=== PATIENT | female | born 1995 | race Caucasian/White ===

== ENCOUNTER 2019-07-20 19:56 | Inpatient (IN) | payer MEDICAID ==
[2019-07-20] MEDS ORDERED: NORMAL SALINE 1000 ML 1,000 ML IV ONE (20:07)
--- NOTE | 2019-07-20 20:12 | ER Document Report ---
ED Medical Screen (RME) - General Chief Complaint: Vomiting Stated Complaint: VOMITING Time Seen by Provider: 07/20/19 20:03 Mode of Arrival: Wheelchair Information source: Patient Notes: 24-year-old female presented to ED for complaint of nausea and vomiting since yesterday. She states she is a diabetic and she feels like she does when she has DKA. States her last menstrual period was in May. She states she is vomited all day today multiple times states she also has had multiple diarrheal stools. She does have gastric problems as well as low back pain. I have greeted and performed a rapid initial assessment of this patient. A comprehensive ED assessment and evaluation of the patient, analysis of test results and completion of medical decision making process will be conducted by an additional ED providers. - Related Data Allergies/Adverse Reactions: cinnamon Allergy (Verified 07/20/19 20:08) lavender (Lavandula angustifolia) Allergy (Verified 07/20/19 20:08) Physical Exam - Vital signs Vitals: Temp Pulse Resp BP Pulse Ox 97.4 F 134 H 20 101/85 96 07/20/19 20:02 07/20/19 20:02 07/20/19 20:02 07/20/19 20:02 07/20/19 20:02 Course - Vital Signs Vital signs: Temp Pulse Resp BP Pulse Ox 97.4 F 134 H 20 101/85 96 07/20/19 20:02 07/20/19 20:02 07/20/19 20:02 07/20/19 20:02 07/20/19 20:02 - Laboratory Laboratory results interpreted by me: 07/20/19 20:13 POC Glucose 283 H
[2019-07-20] MEDS ORDERED: PROCHLORPERAZINE EDISYLATE INJ 10 MG/2 ML VIAL IV ONE (20:13)
[2019-07-20] MEDS ORDERED: FAMOTIDINE INJ/PF 20 MG/2 ML SDV IV ONE (21:49)
--- NOTE | 2019-07-20 21:55 | ER Document Report ---
ED General - General Chief Complaint: Nausea/Vomiting Stated Complaint: VOMITING Time Seen by Provider: 07/20/19 20:03 Mode of Arrival: Wheelchair TRAVEL OUTSIDE OF THE [place] IN LAST 30 DAYS: No - HPI Notes: 24-year-old female type I diabetic with onset at age 16 visiting here from [place] reporting a 3-day history of vomiting, low back pain, polydipsia, polyuria and general malaise. Patient says she is been admitted to the hospital multiple times in the past for DKA and thinks that she probably has this again. She says she has been taking her insulin as prescribed. She denies fever. Also says she has a history of diabetic gastric paresis and chronic low back pain. She admits that she regularly smokes cannabis but says she has not smoked any in the last week. She says she "usually gets morphine" when her doctors have to admit her for diabetic gastric paresis and she is requesting this now. Last menses in late May. Patient says her periods are always irregular. She denies . No contraception. Patient denies any skin rashes or abscess. - Related Data Allergies/Adverse Reactions: cinnamon Allergy (Verified 07/20/19 20:08) lavender (Lavandula angustifolia) Allergy (Verified 07/20/19 20:08) Home Medications: Humalog Past Medical History - General Information source: Patient - Social History Smoking Status: Never Smoker Chew tobacco use (# tins/day): No Frequency of alcohol use: None Drug Abuse: None Family History: Reviewed & Not Pertinent Patient has suicidal ideation: No Patient has homicidal ideation: No Review of Systems - Review of Systems Notes: Constitutional: Negative for fever. HENT: Negative for sore throat. Eyes: Negative for visual changes. Cardiovascular: Negative for chest pain. Respiratory: Negative for shortness of breath. Gastrointestinal: As per HPI. Genitourinary: Negative for dysuria. Musculoskeletal: Positive for back pain. Skin: Negative for rash. Neurological: Negative for headaches, focal weakness or numbness. 10 point ROS negative except as marked above and in HPI. Physical Exam - Vital signs Vitals: Temp Pulse Resp BP Pulse Ox 97.4 F 134 H 20 101/85 96 07/20/19 20:02 07/20/19 20:02 07/20/19 20:02 07/20/19 20:02 07/20/19 20:02 - Notes Notes: GENERAL: Slender female appearing approximately stated age who looks acutely ill and uncomfortable. SKIN: Good turgor no rashes. HEAD: Normocephalic atraumatic. EYES: PERRLA. EOMI. Conjunctivae and sclerae clear. EARS: CANALS AND TMS CLEAR. NOSE: CLEAR. MOUTH: Tacky moist mucosa. Good dentition. No stridor or edema. No drooling. NECK: Supple. No masses or thyromegaly. No adenopathy. Carotids 2+ without br uits. No JVD. BACK: Symmetrical without tenderness. CHEST: Respirations unlabored. Breath sounds clear and symmetrical. HEART: Tachycardic regular rhythm. No murmur gallop or rub. ABDOMEN: Mild epigastric tenderness. Soft without masses, organomegaly or rebound. Hyperactive bowel sounds. No bruits. GENITALIA: Deferred. EXTREMITIES: No edema. No calf tenderness. Cap refill less than 1.5 seconds. Dorsalis pedis and posterior tibial pulses 3+ and symmetrical. NEUROLOGICAL: GCS 15. Alert and oriented x3. Normal gait. Fluent speech. Cranial nerves II through XII intact. Sensorimotor and cerebellar normal. Normal tone. PSYCHIATRIC: Flat, anxious affect. Course - Re-evaluation Re-evalutation: 07/20/19 23:19 Patient appeared clinically dehydrated and had an elevated sugar but strongly suspected of being in diabetic ketoacidosis. Lab testing here was confirmatory with a blood sugar approximately 375 bicarb of 15 normal potassium and venous pH of 7.25. IV insulin infusion along with IV fluids initiated. Patient received IV antiemetics. test was negative. Patient requested IV morphine but I explained her that I did not feel this was appropriate under clinical circumstances. Case was discussed with on-call hospitalist Dr. Shafer who will admit to [facility] and he also requests that we not administer morphine at this time. - Vital Signs Vital signs: Temp Pulse Resp BP Pulse Ox 97.4 F 134 H 20 101/85 96 07/20/19 20:02 07/20/19 20:02 07/20/19 20:02 07/20/19 20:02 07/20/19 20:02 - Laboratory Result Diagrams: 07/20/19 21:42 03/06/20 21:42 Laboratory results interpreted by me: 07/20/19 07/20/19 07/20/19 20:13 21:42 21:42 WBC 16.3 H MCH 25.1 L MCHC 31.3 L RDW 17.5 H Lymph % (Auto) 6.8 L Absolute Neuts (auto) 14.4 H Seg Neutrophils % 88.7 H VBG pH VBG HCO3 Carbon Dioxide 15 L Anion Gap 24 H Glucose 370 H POC Glucose 283 H Alkaline Phosphatase 139 H 07/20/19 21:42 WBC MCH MCHC RDW Lymph % (Auto) Absolute Neuts (auto) Seg Neutrophils % VBG pH 7.29 L VBG HCO3 16.6 L Carbon Dioxide Anion Gap Glucose POC Glucose Alkaline Phosphatase Critical Care Note - Critical Care Note Total time excluding time spent on procedures (mins): 35 - IV insulin infusion with DKA protocol Discharge - Discharge Clinical Impression: Diabetic gastroparesis Diabetic ketoacidosis Qualifiers: Diabetes mellitus type: type 1 Diabetes mellitus complication detail: without coma Qualified Code(s): E10.10 - Type 1 diabetes mellitus with ketoacidosis without coma Condition: Fair Disposition: ADMITTED INPATIENT Admitting Provider: Soni (Hospitalist) Unit Admitted: [facility]
[2019-07-20 21:57] LABS: ABSOLUTE LYMPHOCYTES (AUTO) 1.1 10^3/uL (0.5-4.7); ABSOLUTE MONOCYTES (AUTO) 0.7 10^3/uL (0.1-1.4); ABSOLUTE NEUT (AUTO) 14.4 10^3/uL (1.7-8.2); BASOPHILS % (AUTO) 0.2 % (0-2); HEMATOCRIT 42.2 % (36.0-47.0); HEMOGLOBIN 13.2 g/dL (12.0-15.5); LYMPHOCYTES % (AUTO) 6.8 % (13-45); MEAN CORPUSCULAR HEMOGLOBIN 25.1 pg (27.0-33.4); MEAN CORPUSCULAR HGB CONC 31.3 g/dL (32.0-36.0); MEAN CORPUSCULAR VOLUME 80 fl (80-97); MONOCYTES % (AUTO) 4.3 % (3-13); PLATELET COUNT 445 10^3/uL (150-450); RED BLOOD COUNT 5.26 10^6/uL (3.72-5.28); RED CELL DISTRIBUTION WIDTH 17.5 % (11.5-14.0); SEGMENTED NEUTROPHILS % (AUTO) 88.7 % (42-78); TOTAL CELLS COUNTED % (AUTO) 100 %; WHITE BLOOD COUNT 16.3 10^3/uL (4.0-10.5)
[2019-07-20 22:00] LABS: VENOUS BLOOD BASE EXCESS -9.1 mmol/L; VENOUS BLOOD HCO3 16.6 mmol/L (20-32); VENOUS BLOOD PCO2 35.3 mmHg (35-63); VENOUS BLOOD PH 7.29 (7.30-7.42)
--- NOTE | 2019-07-20 22:11 | EKG REPORT ---
SEVERITY:- OTHERWISE NORMAL ECG - SINUS TACHYCARDIA BORDERLINE LEFT AXIS DEVIATION : Confirmed by: Pedro Bustamante MD 20-Jul-2019 22:11:04
[2019-07-20 23:00] LABS: ALBUMIN 4.9 g/dL (3.5-5.0); ALKALINE PHOSPHATASE 139 U/L (38-126); ASPARTATE AMINO TRANSFERASE 19 U/L (14-36); BILIRUBIN,DIRECT 0.4 mg/dL (0.0-0.4); BILIRUBIN,TOTAL 0.5 mg/dL (0.2-1.3); BLOOD UREA NITROGEN 16 mg/dL (7-20); CALCIUM 9.8 mg/dL (8.4-10.2); CARBON DIOXIDE 15 mmol/L (22-30); CHLORIDE 99 mmol/L (98-107); GLUCOSE 370 mg/dL (75-110); POTASSIUM 4.9 mmol/L (3.6-5.0)
[2019-07-20 23:05] LABS: ANION GAP 24 (5-19)
[2019-07-20] MEDS ORDERED: DEXTROSE 40% GEL 15 GM TUBE PO PRN ×2 (23:10)
[2019-07-20] MEDS ORDERED: NORMAL SALINE 100 ML with INSULIN REGULAR, HUMAN 100 UNIT IV PRN ×2 (23:10)
[2019-07-20] MEDS ORDERED: DEXTROSE 50%-WATER 25 GM/50 ML DISP.SYRIN IV PRN ×2 (23:10)
[2019-07-20] MEDS ORDERED: GLUCAGON,HUMAN RECOMB 1 MG INJ IM PRN (23:10)
[2019-07-20] MEDS ORDERED: METOCLOPRAMIDE HCL INJ/PF 10 MG/2 ML SDV IV ONE (23:17)
[2019-07-20 23:38] LABS: APPEARANCE,URINE CLEAR; BILIRUBIN,URINE NEGATIVE (NEGATIVE); COLOR,URINE YELLOW; GLUCOSE, URINE >=500 mg/dL (NEGATIVE); KETONES,URINE 80 mg/dL (NEGATIVE); PROTEIN,URINE NEGATIVE (NEGATIVE); URINE SPECIFIC GRAVITY 1.021; UROBILINOGEN,URINE NEGATIVE mg/dL (<2.0)
[2019-07-20 23:54] LABS: URINE AMPHETAMINES SCREEN NEGATIVE; URINE BARBITURATES SCREEN NEGATIVE; URINE BENZODIAZEPINES SCREEN NEGATIVE; URINE COCAINE SCREEN NEGATIVE; URINE METHADONE SCREEN NEGATIVE; URINE PHENCYCLIDINE SCREEN NEGATIVE
[2019-07-20 23:55] LABS: URINE MARIJUANA (THC) SCREEN UNCONFIRMED POSITIVE
[2019-07-20] MEDS ORDERED: INSULIN REG, HUMAN 100 UNIT/ML 3 ML VIAL (PYX) ONE (23:57)
[2019-07-21] MEDS ORDERED: ACETAMINOPHEN 650 MG SUPP.RECT PR PRN (00:30)
[2019-07-21] MEDS ORDERED: ACETAMINOPHEN 325 MG TABLET PO PRN (00:30)
[2019-07-21] MEDS ORDERED: PROMETHAZINE HCL INJ 25 MG/1 ML VIAL IV PRN (00:30)
[2019-07-21] MEDS ORDERED: MAGNESIUM HYDROXIDE SUSP 30 ML UDCUP PO PRN (00:30)
[2019-07-21] MEDS ORDERED: NORMAL SALINE 1000 ML 1,000 ML IV PRN (00:37)
[2019-07-21] MEDS ORDERED: NORMAL SALINE 100 ML with INSULIN REGULAR, HUMAN 100 UNIT IV PRN ×2 (00:37)
[2019-07-21] MEDS ORDERED: KETOROLAC TROMETHAMINE INJ/PF 30 MG/1 ML SDV IV PRN (00:44)
--- NOTE | 2019-07-21 00:56 | PDOC H&P ---
History of Present Illness Admission Date/PCP: 07/20/19 23:40 Patient complains of: Nausea and vomiting History of Present Illness: RANDY SHAH is a 24 year old female with a history of type 1 diabetes mellitus as well as pancreatic insufficiency and possible diabetic gastroparesis. She also has neuropathy and likely a bulging disc at L5-S1. Her last hospitalization for DKA was in May. She states that approximately 2 days ago she began to feel poorly. Her glucose was in the 200s. She began to have chills and hot flashes but no fever. There was no obvious evidence of infection. The nausea and vomiting has become worse and she presented to the emergency department. Evaluation revealed an elevated glucose of 370. Anion gap was 24. Electrolytes were normal. CBC revealed a white blood cell count of 16. Urine was positive for ketones as well. With the persistent nausea and vomiting as well as diabetic ketoacidosis patient referred to the hospital service for admission Past Medical History Cardiac Medical History: Denies: Congestive Heart Failure, Coronary Artery Disease, Hyperlipidema, Hyp ertension Pulmonary Medical History: Denies: Asthma, Chronic Obstructive Pulmonary Disease (COPD) EENT Medical History: Denies: Ears, Nose, Throat Neurological Medical History: Reports: Other - Diabetic neuropathy Endocrine Medical History: Reports: Diabetes Mellitus Type 1 Renal/ Medical History: Denies: Chronic Kidney Disease, Nephrolithiasis Malignancy Medical History: Reports: None GI Medical History: Reports: Other - Diabetic gastroparesis. Pancreatic insufficiency. Musculoskeltal Medical History: Reports: Other - Possible bulging disc at L5/S1 with chronic pain Skin Medical History: Denies: Eczema, Psoriasis Psychiatric Medical History: Reports: Substance Abuse Denies: Alcohol Dependency, Tobacco Dependency Past Surgical History Past Surgical History: Reports: Other - Gastroscopy Social History Information Source: Patient, Relative Lives with: Alone - Patient is single Smoking Status: Never Smoker Electronic Cigarette use?: No Frequency of Alcohol Use: None Hx Recreational Drug Use: Yes Drugs: Marijuana Hx Prescription Drug Abuse: No - Advance Directive Resuscitation Status: Full Code Family History Family History: DM Parental Family History Reviewed: Yes Children Family History Reviewed: NA Sibling(s) Family History Reviewed.: Yes Medication/Allergy Allergies/Adverse Reactions: cinnamon Allergy (Verified 07/20/19 20:08) lavender (Lavandula angustifolia) Allergy (Verified 07/20/19 20:08) Review of Systems Constitutional: PRESENT: anorexia, chills Eyes: ABSENT: visual disturbances Ears: ABSENT: hearing changes Nose, Mouth, and Throat: ABSENT: headache(s), sore throat Cardiovascular: ABSENT: chest pain, edema, palpitations Respiratory: ABSENT: cough, dyspnea Gastrointestinal: PRESENT: nausea, vomiting. ABSENT: coffee ground emesis, heartburn, hematemesis, hematochezia Genitourinary: ABSENT: difficulty urinating Musculoskeletal: PRESENT: back pain Neurological: PRESENT: tingling - Occasional tingling or burning in her legs Psychiatric: PRESENT: anxiety Endocrine: ABSENT: cold intolerance, heat intolerance, menstrual abnormalities, polydipsia, polyphagia, polyuria Hematologic/Lymphatic: ABSENT: easy bleeding, easy bruising, lymphadenopathy Physical Exam Vital Signs: Temp Pulse Resp BP Pulse Ox 97.4 F 134 H 20 101/85 96 07/20/19 20:02 07/20/19 20:02 07/20/19 20:02 07/20/19 20:02 07/20/19 20:02 Intake & Output 07/19/19 07/20/19 07/21/19 06:59 06:59 06:59 Intake Total 1000 Balance 1000 Weight 48.3 kg General appearance: PRESENT: cooperative, severe distress, well-developed Head exam: PRESENT: atraumatic, normocephalic Eye exam: PRESENT: conjunctiva pink, EOMI. ABSENT: scleral icterus Ear exam: PRESENT: normal external ear exam. ABSENT: bleeding, drainage Mouth exam: PRESENT: dry mucosa, tongue midline, other - Piercing present Throat exam: PRESENT: tonsillogmegaly. ABSENT: post pharyngeal erythema, tonsillar exudate Neck exam: ABSENT: carotid bruit, JVD, lymphadenopathy Respiratory exam: PRESENT: clear to auscultation meghan, symmetrical, unlabored. ABSENT: accessory muscle use, prolonged expiratory phas, rales, rhonchi, tachypnea, wheezes Cardiovascular exam: PRESENT: +S1, +S2, tachycardia. ABSENT: diastolic murmur, systolic murmur Pulses: PRESENT: normal radial pulses, normal dorsalis pedis pul GI/Abdominal exam: PRESENT: normal bowel sounds, soft, tenderness - Mild nonspecific tenderness. ABSENT: distended, guarding, mass Rectal exam: PRESENT: deferred Gentrourinary exam: ABSENT: indwelling catheter Extremities exam: ABSENT: joint swelling, pedal edema Musculoskeletal exam: PRESENT: ambulatory, full ROM, normal inspection. ABSENT: deformity Neurological exam: PRESENT: alert, awake, oriented to person, oriented to place, oriented to time, oriented to situation, CN II-XII grossly intact. ABSENT: motor sensory deficit - No evidence of deficit at this time Psychiatric exam: PRESENT: appropriate affect - Affect reflects her current clinical state. ABSENT: agitated, anxious Focused psych exam: ABSENT: delusional, paranoid, restlessness Skin exam: PRESENT: dry, normal color, warm, other - Multiple tattoos. ABSENT: rash Results Laboratory Results: 07/20/19 21:42 07/20/19 21:42 07/20/19 07/20/19 07/20/19 21:42 21:42 21:42 WBC 16.3 H RBC 5.26 Hgb 13.2 Hct 42.2 MCV 80 MCH 25.1 L MCHC 31.3 L RDW 17.5 H Plt Count 445 Seg Neutrophils % 88.7 H VBG pH 7.29 L VBG pCO2 35.3 VBG HCO3 16.6 L VBG Base Excess -9.1 Sodium 137.8 Potassium 4.9 Chloride 99 Carbon Dioxide 15 L Anion Gap 24 H BUN 16 Creatinine 0.62 Est GFR ( Amer) > 60 Glucose 370 H Calcium 9.8 Total Bilirubin 0.5 AST 19 Alkaline Phosphatase 139 H Total Protein 8.0 Albumin 4.9 Serum HCG, Qual Urine Color Urine Appearance Urine pH Ur Specific [place] Urine Protein Urine Glucose (UA) Urine Ketones Urine Blood Urine RBC (Auto) 07/20/19 07/20/19 21:42 23:10 WBC RBC Hgb Hct MCV MCH MCHC RDW Plt Count Seg Neutrophils % VBG pH VBG pCO2 VBG HCO3 VBG Base Excess Sodium Potassium Chloride Carbon Dioxide Anion Gap BUN Creatinine Est GFR ( Amer) Glucose Calcium Total Bilirubin AST Alkaline Phosphatase Total Protein Albumin Serum HCG, Qual NEGATIVE Urine Color YELLOW Urine Appearance CLEAR Urine pH 6.0 Ur Specific [place] 1.021 Urine Protein NEGATIVE Urine Glucose (UA) >=500 H Urine Ketones 80 H Urine Blood SMALL H Urine RBC (Auto) 14 Assessment and Plan - Diagnosis (1) Diabetic ketoacidosis Qualifiers: Diabetes mellitus type: type 1 Diabetes mellitus complication detail: without coma Qualified Code(s): E10.10 - Type 1 diabetes mellitus with ketoacidosis without coma Is this a current diagnosis for this admission?: Yes Plan: 07/20/2019 The patient was placed on continuous insulin infusion. She will be n.p.o. except sips of water and ice chips. She will receive aggressive IV fluids. Initially fingersticks will be every 1 hour and serum chemistries every 2 hours. Urine for ketones is also ordered for every 2 hours. I did ask her how long it generally takes for her to clear when admitted for diabetic ketoacidosis. She really did not have a specific answer and then told me usually 1 week. Her glucose was not extremely elevated, her pH was not extremely depressed and her bicarb was not extremely low therefore I am hoping for resolution within a much shorter timeframe. (2) Hyperglycemia due to type 1 diabetes mellitus Is this a current diagnosis for this admission?: Yes Plan: 07/20/2019 The patient has an appropriate regimen for her insulin. Unfortunately she seems to be susceptible to DKA. We will utilize the insulin infusion and then transition to Lantus and sliding scale coverage when she begins to eat. (3) Diabetic neuropathy associated with type 1 diabetes mellitus Qualifiers: Diabetes mellitus complication detail: diabetic polyneuropathy Qualified Code(s): E10.42 - Type 1 diabetes mellitus with diabetic polyneuropathy Is this a current diagnosis for this admission?: Yes Plan: 07/20/2019 Continue gabapentin. The patient is also on duloxetine. (4) Diabetic gastroparesis Is this a current diagnosis for this admission?: Yes Plan: 07/20/2019 The patient is due for a gastric emptying time study when she returns to [place]. When she begins her oral intake a trial of metoclopramide is certainly reasonable. (5) Pancreatic insufficiency Is this a current diagnosis for this admission?: Yes Plan: 07/20/2019 As the patient begins to eat will need to substitute the hospital formulary product for her Creon. She takes 2 capsules of the strength Creon with meals. We can also consider a dietitian consult to help adjust her diet to pancreatic insufficiency. (6) Lumbosacral disc disease Is this a current diagnosis for this admission?: Yes Plan: 07/20/2019 The patient was not specific but she said something is "pushed forward" in her lower back at L5/S1 and this is causing the pain. It is possible that it is a bulging disc. There could also be retrolisthesis. We will continue the duloxetine and gabapentin and have her tramadol available. She is unable to sustain oral medications then intravenous medications are available as well. (7) Chronic back pain Qualifiers: Back pain location: low back pain Back pain laterality: midline Sciatica presence: unspecified whether sciatica present Qualified Code(s): M54.5 - Low back pain; G89.29 - Other chronic pain Is this a current diagnosis for this admission?: Yes Plan: 07/20/2019 The patient does complain of diabetic neuropathy but it certainly could be neuropathy due to the lumbosacral issue noted above. Regardless we will c ontinue the gabapentin, duloxetine and tramadol. Intravenous medication will also be available if the patient is unable to tolerate oral medication. - Time Time Spent with patient: 35 or more minutes Smoking Cessation Education: 3 to 10 minutes Medications reviewed and adjusted accordingly: Yes Anticipated discharge: Home - Inpatient Certification Based on my medical assessment, after consideration of the patient's comorbidities, presenting symptoms, or acuity I expect that the services needed warrant INPATIENT care.: Yes I certify that my determination is in accordance with my understanding of Medicare's requirements for reasonable and necessary INPATIENT services [42 CFR 412.3e].: Yes Medical Necessity: Failure to Improve With Outpatient Therapy, Need Close Monitoring Due to Risk of Patient Decompensation, Need For IV Fluids, Need for Pain Control, Other - Frequent laboratory testing. Post Hospital Care: D/C Intermediate Designer Documentation
[2019-07-21 03:02] LABS: ANION GAP 16 (5-19); BLOOD UREA NITROGEN 13 mg/dL (7-20); CARBON DIOXIDE 16 mmol/L (22-30); CHLORIDE 110 mmol/L (98-107); GLUCOSE 236 mg/dL (75-110)
[2019-07-21 03:13] LABS: POTASSIUM 3.9 mmol/L (3.6-5.0)
[2019-07-21] MEDS ORDERED: POTASSI CL 40 MEQ/D5-1/2NS 1L 40 MEQ/1,000 ML RTUINJ IV PRN (04:49)
[2019-07-21] MEDS: GABAPENTIN 300 MG CAPSULE PO SCH ×3 (05:18→22:05)
[2019-07-21] MEDS: HEPARIN SOD (PORCINE) 5,000 UNIT/ML 1 ML VIAL SUBCUT SCH ×3 (05:18→22:06)
[2019-07-21 05:35] LABS: ANION GAP 14 (5-19); BLOOD UREA NITROGEN 13 mg/dL (7-20); CALCIUM 8.7 mg/dL (8.4-10.2); CARBON DIOXIDE 20 mmol/L (22-30); CHLORIDE 107 mmol/L (98-107); GLUCOSE 122 mg/dL (75-110); POTASSIUM 4.1 mmol/L (3.6-5.0)
[2019-07-21 06:21] LABS: ABSOLUTE LYMPHOCYTES (AUTO) 1.8 10^3/uL (0.5-4.7); ABSOLUTE MONOCYTES (AUTO) 1.4 10^3/uL (0.1-1.4); BASOPHILS % (AUTO) 0.3 % (0-2); HEMATOCRIT 32.2 % (36.0-47.0); LYMPHOCYTES % (AUTO) 9.7 % (13-45); MEAN CORPUSCULAR HEMOGLOBIN 25.6 pg (27.0-33.4); MEAN CORPUSCULAR HGB CONC 32.6 g/dL (32.0-36.0); MEAN CORPUSCULAR VOLUME 78 fl (80-97); MONOCYTES % (AUTO) 7.7 % (3-13); PLATELET COUNT 372 10^3/uL (150-450); RED BLOOD COUNT 4.11 10^6/uL (3.72-5.28); SEGMENTED NEUTROPHILS % (AUTO) 82.3 % (42-78); TOTAL CELLS COUNTED % (AUTO) 100 %; WHITE BLOOD COUNT 18.2 10^3/uL (4.0-10.5)
[2019-07-21 06:24] LABS: HEMOGLOBIN 10.5 g/dL (12.0-15.5)
[2019-07-21 06:35] LABS: ANION GAP 12 (5-19); BLOOD UREA NITROGEN 12 mg/dL (7-20); CALCIUM 8.3 mg/dL (8.4-10.2); CARBON DIOXIDE 18 mmol/L (22-30); CHLORIDE 108 mmol/L (98-107); GLUCOSE 160 mg/dL (75-110); POTASSIUM 3.9 mmol/L (3.6-5.0)
[2019-07-21] MEDS: NORMAL SALINE 1000 ML 1,000 ML IV PRN ×2 (06:40→13:20)
[2019-07-21 08:26] LABS: ANION GAP 15 (5-19); BLOOD UREA NITROGEN 11 mg/dL (7-20); CALCIUM 8.2 mg/dL (8.4-10.2); CARBON DIOXIDE 15 mmol/L (22-30); CHLORIDE 107 mmol/L (98-107); GLUCOSE 221 mg/dL (75-110); POTASSIUM 4.3 mmol/L (3.6-5.0)
[2019-07-21] MEDS: INSULIN LISPRO 100 UNIT/ML 3 ML VIAL SUBCUT SCH ×6 (08:32→21:56)
[2019-07-21] MEDS: METOCLOPRAMIDE HCL INJ/PF 10 MG/2 ML SDV IV PRN ×2 (09:04→15:23)
[2019-07-21] MEDS ORDERED: GLUCAGON,HUMAN RECOMB 1 MG INJ IM PRN (09:58)
[2019-07-21] MEDS ORDERED: DEXTROSE 50%-WATER 25 GM/50 ML DISP.SYRIN IV PRN ×2 (09:58)
[2019-07-21] MEDS ORDERED: DEXTROSE 40% GEL 15 GM TUBE PO PRN ×2 (09:58)
[2019-07-21] MEDS ORDERED: INSULIN GLARGINE,HUM.REC.ANLOG 1,000 UNIT/10 ML VIAL SUBCUT SCH ×2 (10:00→22:00)
[2019-07-21] MEDS: DULOXETINE HCL 30 MG CAPSULE.DR PO SCH (10:15)
[2019-07-21] MEDS: FAMOTIDINE INJ/PF 20 MG/2 ML SDV IV SCH ×2 (10:15→22:06)
[2019-07-21] MEDS: TRAMADOL HCL 50 MG TABLET PO PRN ×2 (10:15→22:15)
[2019-07-21 10:38] LABS: ANION GAP 16 (5-19); BLOOD UREA NITROGEN 9 mg/dL (7-20); CALCIUM 8.7 mg/dL (8.4-10.2); CARBON DIOXIDE 17 mmol/L (22-30); CHLORIDE 105 mmol/L (98-107); GLUCOSE 230 mg/dL (75-110); POTASSIUM 4.3 mmol/L (3.6-5.0)
[2019-07-21] MEDS ORDERED: INSULIN GLARGINE,HUM.REC.ANLOG 1,000 UNIT/10 ML VIAL (PYX) SUBCUT ONE (11:00)
[2019-07-21 13:38] LABS: APPEARANCE,URINE SLIGHTLY-CLOUDY; BILIRUBIN,URINE NEGATIVE (NEGATIVE); COLOR,URINE YELLOW; GLUCOSE, URINE 50 mg/dL (NEGATIVE); KETONES,URINE 20 mg/dL (NEGATIVE); LEUKOCYTE ESTERASE,URINE NEGATIVE (NEGATIVE); NITRITE,URINE NEGATIVE (NEGATIVE); PROTEIN,URINE NEGATIVE (NEGATIVE); URINE SPECIFIC GRAVITY 1.011; UROBILINOGEN,URINE NEGATIVE mg/dL (<2.0)
[2019-07-21] MEDS: LORAZEPAM INJ 2 MG/1 ML VIAL IV PRN ×2 (13:38→23:47)
--- NOTE | 2019-07-21 16:34 | PDOC PROGRESS REPORT ---
Subjective Progress Note for:: 07/21/19 Subjective:: No adverse events overnight. No new complaints. She wants to take a shower. She says she takes Levemir 15 units in the morning and 5 units at night, and she denies on NovoLog sliding scale with a 4 unit bolus with meals plus a sliding scale. Her blood sugars earlier in the day were higher but her last one was 80. She is on a consistent carbohydrate diet at the moment. Reason For Visit: DIABETIC KETOACIDOSIS,LUMBAR DISC DISEASE,DIABETIC Physical Exam Vital Signs: Temp Pulse Resp BP Pulse Ox 98.2 F 102 H 16 120/89 H 100 07/21/19 16:00 07/21/19 16:00 07/21/19 16:00 07/21/19 16:00 07/21/19 16:00 Intake & Output 07/20/19 07/21/19 07/22/19 06:59 06:59 07:59 Intake Total 1035 1910 Output Total 400 600 Balance 635 1310 Weight 49 kg 49 kg General appearance: PRESENT: no acute distress, cooperative Respiratory exam: PRESENT: clear to auscultation meghan, symmetrical, unlabored. ABSENT: accessory muscle use, crackles, prolonged expiratory phas, retraction, rhonchi, tachypnea Cardiovascular exam: PRESENT: RRR, +S1, +S2 Pulses: PRESENT: normal carotid pulses Vascular exam: PRESENT: normal capillary refill GI/Abdominal exam: PRESENT: normal bowel sounds, soft. ABSENT: distended, guarding, rebound, tenderness Extremities exam: ABSENT: clubbing, pedal edema Musculoskeletal exam: PRESENT: normal inspection. ABSENT: deformity Neurological exam: PRESENT: alert, awake, oriented to person, oriented to place, oriented to situation Psychiatric exam: PRESENT: appropriate affect, normal mood Skin exam: PRESENT: dry, warm Results Laboratory Results: 07/21/19 06:05 07/21/19 10:13 07/20/19 07/20/19 07/20/19 21:42 21:42 21:42 WBC 16.3 H RBC 5.26 Hgb 13.2 Hct 42.2 MCV 80 MCH 25.1 L MCHC 31.3 L RDW 17.5 H Plt Count 445 Seg Neutrophils % 88.7 H VBG pH 7.29 L VBG pCO2 35.3 VBG HCO3 16.6 L VBG Base Excess -9.1 Sodium 137.8 Potassium 4.9 Chloride 99 Carbon Dioxide 15 L Anion Gap 24 H BUN 16 Creatinine 0.62 Est GFR ( Amer) > 60 Glucose 370 H Calcium 9.8 Magnesium Total Bilirubin 0.5 AST 19 Alkaline Phosphatase 139 H Total Protein 8.0 Albumin 4.9 Serum HCG, Qual Urine Color Urine Appearance Urine pH Ur Specific [place] Urine Protein Urine Glucose (UA) Urine Ketones Urine Blood Urine Nitrite Ur Leukocyte Esterase Urine WBC (Auto) Urine RBC (Auto) 07/20/19 07/20/19 07/21/19 21:42 23:10 02:30 WBC RBC Hgb Hct MCV MCH MCHC RDW Plt Count Seg Neutrophils % VBG pH VBG pCO2 VBG HCO3 VBG Base Excess Sodium 142.3 Potassium 3.9 D Chloride 110 H Carbon Dioxide 16 L Anion Gap 16 BUN 13 Creatinine 0.51 L Est GFR ( Amer) > 60 Glucose 236 H Calcium 9.0 Magnesium 1.7 Total Bilirubin AST Alkaline Phosphatase Total Protein Albumin Serum HCG, Qual NEGATIVE Urine Color YELLOW Urine Appearance CLEAR Urine pH 6.0 Ur Specific [place] 1.021 Urine Protein NEGATIVE Urine Glucose (UA) >=500 H Urine Ketones 80 H Urine Blood SMALL H Urine Nitrite Ur Leukocyte Esterase Urine WBC (Auto) Urine RBC (Auto) 14 07/21/19 07/21/19 07/21/19 04:04 06:05 06:05 WBC 18.2 H RBC 4.11 Hgb 10.5 L D Hct 32.2 L MCV 78 L MCH 25.6 L MCHC 32.6 RDW 17.0 H Plt Count 372 Seg Neutrophils % 82.3 H VBG pH VBG pCO2 VBG HCO3 VBG Base Excess Sodium 140.7 138.4 Potassium 4.1 3.9 Chloride 107 108 H Carbon Dioxide 20 L 18 L Anion Gap 14 12 BUN 13 12 Creatinine 0.55 0.52 Est GFR ( Amer) > 60 > 60 Glucose 122 H 160 H Calcium 8.7 8.3 L Magnesium 1.6 1.6 Total Bilirubin AST Alkaline Phosphatase Total Protein Albumin Serum HCG, Qual Urine Color Urine Appearance Urine pH Ur Specific [place] Urine Protein Urine Glucose (UA) Urine Ketones Urine Blood Urine Nitrite Ur Leukocyte Esterase Urine WBC (Auto) Urine RBC (Auto) 07/21/19 07/21/19 07/21/19 08:03 10:13 13:25 WBC RBC Hgb Hct MCV MCH MCHC RDW Plt Count Seg Neutrophils % VBG pH VBG pCO2 VBG HCO3 VBG Base Excess Sodium 137.3 138.3 Potassium 4.3 4.3 Chloride 107 105 Carbon Dioxide 15 L 17 L Anion Gap 15 16 BUN 11 9 Creatinine 0.52 0.57 Est GFR ( Amer) > 60 > 60 Glucose 221 H 230 H Calcium 8.2 L 8.7 Magnesium 1.6 1.7 Total Bilirubin AST Alkaline Phosphatase Total Protein Albumin Serum HCG, Qual Urine Color YELLOW Urine Appearance SLIGHTLY-CLOUDY Urine pH 6.0 Ur Specific [place] 1.011 Urine Protein NEGATIVE Urine Glucose (UA) 50 H Urine Ketones 20 H Urine Blood MODERATE H Urine Nitrite NEGATIVE Ur Leukocyte Esterase NEGATIVE Urine WBC (Auto) 4 Urine RBC (Auto) 1 Assessment and Plan - Diagnosis (1) Diabetic ketoacidosis Qualifiers: Diabetes mellitus type: type 1 Diabetes mellitus complication detail: without coma Qualified Code(s): E10.10 - Type 1 diabetes mellitus with ketoacidosis without coma Is this a current diagnosis for this admission?: Yes Plan: DKA is now resolved. Working to get her back on her usual insulin regimen and see how her blood sugars do on that. If her blood sugars are well controlled on her home regimen, she can be discharged home. - Time Time Spent with patient: 15-24 minutes
[2019-07-22] MEDS: TRAMADOL HCL 50 MG TABLET PO PRN (05:30)
[2019-07-22] MEDS: HEPARIN SOD (PORCINE) 5,000 UNIT/ML 1 ML VIAL SUBCUT SCH (05:30)
[2019-07-22] MEDS: GABAPENTIN 300 MG CAPSULE PO SCH (05:30)
[2019-07-22 06:11] LABS: ABSOLUTE BASOPHILS # (AUTO) 0.1 10^3/uL (0.0-0.2); ABSOLUTE EOSINOPHILS # (AUTO) 0.2 10^3/uL (0.0-0.6); ABSOLUTE LYMPHOCYTES (AUTO) 3.4 10^3/uL (0.5-4.7); ABSOLUTE MONOCYTES (AUTO) 0.8 10^3/uL (0.1-1.4); ABSOLUTE NEUT (AUTO) 8.1 10^3/uL (1.7-8.2); BASOPHILS % (AUTO) 0.6 % (0-2); EOSINOPHILS % (AUTO) 1.4 % (0-6); HEMATOCRIT 32.7 % (36.0-47.0); HEMOGLOBIN 10.7 g/dL (12.0-15.5); LYMPHOCYTES % (AUTO) 26.8 % (13-45); MEAN CORPUSCULAR HEMOGLOBIN 25.8 pg (27.0-33.4); MEAN CORPUSCULAR HGB CONC 32.7 g/dL (32.0-36.0); MEAN CORPUSCULAR VOLUME 79 fl (80-97); MONOCYTES % (AUTO) 6.3 % (3-13); PLATELET COUNT 364 10^3/uL (150-450); RED BLOOD COUNT 4.16 10^6/uL (3.72-5.28); RED CELL DISTRIBUTION WIDTH 17.2 % (11.5-14.0); SEGMENTED NEUTROPHILS % (AUTO) 64.9 % (42-78); TOTAL CELLS COUNTED % (AUTO) 100 %; WHITE BLOOD COUNT 12.6 10^3/uL (4.0-10.5)
[2019-07-22 06:35] LABS: ANION GAP 10 (5-19); BLOOD UREA NITROGEN 3 mg/dL (7-20); CALCIUM 8.6 mg/dL (8.4-10.2); CARBON DIOXIDE 23 mmol/L (22-30); CHLORIDE 107 mmol/L (98-107); GLUCOSE 132 mg/dL (75-110); POTASSIUM 3.9 mmol/L (3.6-5.0)
[2019-07-22] MEDS: INSULIN LISPRO 100 UNIT/ML 3 ML VIAL SUBCUT SCH ×2 (09:00)
[2019-07-22] MEDS: FAMOTIDINE INJ/PF 20 MG/2 ML SDV IV SCH (09:29)
[2019-07-22] MEDS: DULOXETINE HCL 30 MG CAPSULE.DR PO SCH (09:29)
[2019-07-22 09:55] VITALS: BP 129/91
[2019-07-22] MEDS ORDERED: INSULIN GLARGINE,HUM.REC.ANLOG 1,000 UNIT/10 ML VIAL SUBCUT SCH (10:00)
[2019-07-22] MEDS ORDERED: LIPASE/PROTEASE/AMYLASE 1 CAP CAPSULE.DR PO ONE (11:00)
--- NOTE | 2019-07-22 17:06 | PDOC DISCHARGE SUMMARY ---
Impression - Admit/DC Date/PCP Admission Date/Primary Care Provider: 07/20/19 23:40 Discharge Date: 07/22/19 - Discharge Diagnosis (1) Diabetic ketoacidosis Is this a current diagnosis for this admission?: Yes - Additional Information Resuscitation Status: Full Code Discharge Diet: Diabetic Discharge Activity: Activity As Tolerated Prescriptions: Metoclopramide HCl [Reglan 10 mg Tablet] 10 mg PO Q6HP PRN #10 tablet PRN Reason: For Nausea/Vomiting Home Medications: Acetaminophen [Tylenol] 650 mg PO Q6HP PRN 07/21/19 Duloxetine HCl [Cymbalta 30 mg Capsule.] 30 mg PO BID 07/21/19 Gabapentin [Neurontin] 600 mg PO TID 07/21/19 Insulin Aspart [Novolog Flexpen] 0 unit SUBCUT .SLD SCALE 07/21/19 Insulin Aspart [Novolog Flexpen] 4 unit SQ TID 07/21/19 Insulin Detemir [Levemir Insulin 100 units/mL Insulin Pen] 5 unit SUBCUT QHS 07/21/19 Insulin Detemir [Levemir Insulin 100 units/mL Insulin Pen] 15 unit SUBCUT QAM 07/21/19 Lipase/Protease/Amylase [Evan Hernandez 24,000 Units Capsule] 1 each PO TID 07/21/19 Lipase/Protease/Amylase [Evan Hernandez 6,000 Units Capsule] 2 cap PO ASDIR PRN 07/21/19 Multivitamin with Folic Acid [Thera Tablet] 1 each PO DAILY 07/21/19 Promethazine HCl [Phenergan 25 mg Tablet] 25 mg PO Q6HP PRN 07/21/19 Metoclopramide HCl [Reglan 10 mg Tablet] 10 mg PO Q6HP PRN #10 tablet 07/22/19 History of Present Illiness History of Present Illness: RANDY SHAH is a 24 year old female with a history of type 1 diabetes mellitus as well as pancreatic insufficiency and possible diabetic gastroparesis. She also has neuropathy and likely a bulging disc at L5-S1. Her last hospitalization for DKA was in May. She states that approximately 2 days ago she began to feel poorly. Her glucose was in the 200s. She began to have chills and hot flashes but no fever. There was no obvious evidence of infection. The nausea and vomiting has become worse and she presented to the emergency department. Evaluation revealed an elevated glucose of 370. Anion gap was 24. Electrolytes were normal. CBC revealed a white blood cell count of 16. Urine was positive for ketones as well. With the persistent nausea and vomiting as well as diabetic ketoacidosis patient referred to the [facility] for admission Hospital Course Hospital Course: She is responded well to IV fluids and insulin. She was able to be transitioned back over to her basal bolus regimen that she is on at home. Her blood sugars are well controlled on this regimen. She was eating and drinking a regular diabetic diet. She will be traveling back home to [place] in a day or 2. Her labs and examination were reassuring and she was discharged in stable condition. Physical Exam Vital Signs: Temp Pulse Resp BP Pulse Ox 97.9 F 92 18 129/91 H 100 07/22/19 10:35 07/22/19 10:35 07/22/19 10:35 07/22/19 08:55 07/22/19 10:35 Intake & Output 07/21/19 07/22/19 07/23/19 05:59 06:59 06:59 Intake Total Output Total Balance Weight General appearance: PRESENT: no acute distress, cooperative Respiratory exam: PRESENT: clear to auscultation meghan, symmetrical, unlabored. ABSENT: accessory muscle use, crackles, prolonged expiratory phas, retraction, rhonchi, tachypnea Cardiovascular exam: PRESENT: RRR, +S1, +S2 Pulses: PRESENT: normal carotid pulses Vascular exam: PRESENT: normal capillary refill GI/Abdominal exam: PRESENT: normal bowel sounds, soft. ABSENT: distended, guarding, rebound, tenderness Extremities exam: ABSENT: clubbing, pedal edema Musculoskeletal exam: PRESENT: normal inspection. ABSENT: deformity Neurological exam: PRESENT: alert, awake, oriented to person, oriented to place, oriented to situation Psychiatric exam: PRESENT: appropriate affect, normal mood Skin exam: PRESENT: dry, warm Results Laboratory Results: WBC 12.6 10^3/uL (4.0-10.5) H 07/22/19 04:35 RBC 4.16 10^6/uL (3.72-5.28) 07/22/19 04:35 Hgb 10.7 g/dL (12.0-15.5) L 07/22/19 04:35 Hct 32.7 % (36.0-47.0) L 07/22/19 04:35 MCV 79 fl (80-97) L 07/22/19 04:35 MCH 25.8 pg (27.0-33.4) L 07/22/19 04:35 MCHC 32.7 g/dL (32.0-36.0) 07/22/19 04:35 RDW 17.2 % (11.5-14.0) H 07/22/19 04:35 Plt Count 364 10^3/uL (150-450) 07/22/19 04:35 Lymph % (Auto) 26.8 % (13-45) 07/22/19 04:35 [place] % (Auto) 6.3 % (3-13) 07/22/19 04:35 Eos % (Auto) 1.4 % (0-6) 07/22/19 04:35 Baso % (Auto) 0.6 % (0-2) 07/22/19 04:35 Absolute Neuts (auto) 8.1 10^3/uL (1.7-8.2) 07/22/19 04:35 Absolute Lymphs (auto) 3.4 10^3/uL (0.5-4.7) 07/22/19 04:35 Absolute Monos (auto) 0.8 10^3/uL (0.1-1.4) 07/22/19 04:35 Absolute Eos (auto) 0.2 10^3/uL (0.0-0.6) 07/22/19 04:35 Absolute Basos (auto) 0.1 10^3/uL (0.0-0.2) 07/22/19 04:35 Seg Neutrophils % 64.9 % (42-78) 07/22/19 04:35 VBG pH 7.29 (7.30-7.42) L 07/20/19 21:42 VBG pCO2 35.3 mmHg (35-63) 07/20/19 21:42 VBG HCO3 16.6 mmol/L (20-32) L 07/20/19 21:42 VBG Base Excess -9.1 mmol/L 07/20/19 21:42 Sodium 140.0 mmol/L (137-145) 07/22/19 04:35 Potassium 3.9 mmol/L (3.6-5.0) 07/22/19 04:35 Chloride 107 mmol/L (98-107) 07/22/19 04:35 Carbon Dioxide 23 mmol/L (22-30) 07/22/19 04:35 Anion Gap 10 (5-19) 07/22/19 04:35 BUN 3 mg/dL (7-20) L 07/22/19 04:35 Creatinine 0.40 mg/dL (0.52-1.25) L 07/22/19 04:35 Est GFR ( Amer) > 60 (>60) 07/22/19 04:35 Est GFR (MDRD) Non-Af > 60 (>60) 07/22/19 04:35 Glucose 132 mg/dL (75-110) H 07/22/19 04:35 POC Glucose 137 mg/dL (70-110) H 07/22/19 08:56 Calcium 8.6 mg/dL (8.4-10.2) 07/22/19 04:35 Magnesium 1.7 mg/dL (1.6-2.3) 07/21/19 10:13 Total Bilirubin 0.5 mg/dL (0.2-1.3) 07/20/19 21:42 Direct Bilirubin 0.4 mg/dL (0.0-0.4) 07/20/19 21:42 Neonat Total Bilirubin Not Reportable 07/20/19 21:42 Neonat Direct Bilirubin Not Reportable 07/20/19 21:42 Neonat Indirect Bili Not Reportable 07/20/19 21:42 AST 19 U/L (14-36) 07/20/19 21:42 ALT 17 U/L (<35) 07/20/19 21:42 Alkaline Phosphatase 139 U/L (38-126) H 07/20/19 21:42 Total Protein 8.0 g/dL (6.3-8.2) 07/20/19 21:42 Albumin 4.9 g/dL (3.5-5.0) 07/20/19 21:42 Serum HCG, Qual NEGATIVE (NEGATIVE) 07/20/19 21:42 Urine Color YELLOW 07/21/19 13:25 Urine Appearance SLIGHTLY-CLOUDY 07/21/19 13:25 Urine pH 6.0 (5.0-9.0) 07/21/19 13:25 Ur Specific [place] 1.011 07/21/19 13:25 Urine Protein NEGATIVE mg/dL (NEGATIVE) 07/21/19 13:25 Urine Glucose (UA) 50 mg/dL (NEGATIVE) H 07/21/19 13:25 Urine Ketones 20 mg/dL (NEGATIVE) H 07/21/19 13:25 Urine Blood MODERATE (NEGATIVE) H 07/21/19 13:25 Urine Nitrite NEGATIVE (NEGATIVE) 07/21/19 13:25 Urine Nitrite (Reflex) NEGATIVE (NEGATIVE) 07/20/19 23:10 Urine Bilirubin NEGATIVE (NEGATIVE) 07/21/19 13:25 Urine Urobilinogen NEGATIVE mg/dL (<2.0) 07/21/19 13:25 Ur Leukocyte Esterase NEGATIVE (NEGATIVE) 07/21/19 13:25 Leukocyte Esterase Rfl NEGATIVE (NEGATIVE) 07/20/19 23:10 Urine WBC (Auto) 4 /HPF 07/21/19 13:25 Urine RBC (Auto) 1 /HPF 07/21/19 13:25 U Hyaline Cast (Auto) 5 /LPF 07/20/19 23:10 Urine WBC (Reflex) 2 /HPF 07/20/19 23:10 Squamous Epi Cells Auto 5 /HPF 07/21/19 13:25 Urine Mucus (Auto) RARE /LPF 07/21/19 13:25 Urine Ascorbic Acid NEGATIVE (NEGATIVE) 07/21/19 13:25 Urine Opiates Screen NEGATIVE 07/20/19 23:10 Urine Methadone Screen NEGATIVE 07/20/19 23:10 Ur Barbiturates Screen NEGATIVE 07/20/19 23:10 Ur Phencyclidine Scrn NEGATIVE 07/20/19 23:10 Ur Amphetamines Screen NEGATIVE 07/20/19 23:10 U Benzodiazepines Scrn NEGATIVE 07/20/19 23:10 Urine Cocaine Screen NEGATIVE 07/20/19 23:10 U Marijuana (THC) Screen UNCONFIRMED POSITIVE 07/20/19 23:10 Plan Goals: Patient is returning to [place] tomorrow and will schedule her appointment Time Spent: Greater than 30 Minutes Stroke Is this a Stroke Patient?: No Acute Heart Failure - Is this a Heart Failure Patient?: No
== END 2019-07-22 11:35 | disposition home or self-care (01) | DRG 639 ==
LOC: ER 19:56 → EH 23:40 → 3N 07-21 01:45
PROVIDERS: ADMIT Hospitalist; ATTEND Hospitalist
DX: E10.10 Type 1 diabetes mellitus with ketoacidosis without coma (principal); M51.36 Other intervertebral disc degeneration, lumbar region; E10.43 Type 1 diabetes mellitus with diabetic autonomic (poly)neuropathy; K31.84 Gastroparesis; E10.42 Type 1 diabetes mellitus with diabetic polyneuropathy; K86.89 Other specified diseases of pancreas; F12.90 Cannabis use, unspecified, uncomplicated; Z60.2 Problems related to living alone; Z83.3 Family history of diabetes mellitus; Z91.048 Other nonmedicinal substance allergy status; Z91.02 Food additives allergy status
CPT/HCPCS: 36415; 80048; 80053; 80307; 81001; 82803; 82962; 83735; 84703; 85025; 93005; 93010; 96361; 96374; 96375; 99291; J0780; J1644; J1815; J1885; J2060; J2765; J3480; J3490; J7030; S0028